=== PATIENT | female | born 1955 | race Caucasian/White ===

== ENCOUNTER 2022-10-09 16:08 | Emergency (ER) | payer MEDICARE, SELFPAY ==
[2022-10-09] VITALS (8 sets, daily range): BP systolic 117–146; BP diastolic 67–78; PULSE 63–98; RESP 20; TEMP 36.3; O2SAT 91–98; BMI 29.1
--- NOTE | 2022-10-09 16:31 | CRLHL7_ITS ---
For Patients: As a result of the Century Cures Act, medical imaging exams and procedure reports are released immediately into your electronic medical record. You may view this report before your referring provider. If you have questions, please contact your health care provider. INDICATION: Pain TECHNIQUE: Two view chest. FINDINGS: The lungs are clear. The heart, mediastinum and pulmonary vessels are of normal size. There is no evidence of pleural disease. IMPRESSION: Negative chest. Dictated by Diamond Austin MD @ 10/09/2022 5:41:45 PM (Electronically Signed)
--- NOTE | 2022-10-09 16:32 | ED.GENADULT ---
HPI - General Adult General Chief complaint: Chest Pain Stated complaint: Chest pain, across the whole chest Time Seen by Provider: 10/09/22 16:24 Source: patient Mode of arrival: ambulatory Limitations: no limitations History of Present Illness HPI narrative: 66-year-old female coming in today complaining of chest pain across the entire friend the chest. She feels a little bit of pain on the back of the shoulders as well. pain started last night and has continued on to today. Pain started when she was sitting on the couch watching TV. Nothing makes it better or worse. It is not associated with eating. She is not coughing. She feels a little dizzy. She denies diaphoresis. No headache, blurry vision. No fevers or chills. Patient was diagnosed with diabetes last week, was started on metformin had her 1st dose of insulin last night. She has been able to eat today without any difficulty. She does have a history of coronary artery disease status post stenting she believes about 8 years ago. She has a very strong family history of coronary artery disease with 2 sisters that had and her 39-year-old son who 7 months ago from an [place]. aside from the metformin and insulin patient is on chronic medication that she has been on for several years including atorvastatin. Related Data Home Medications Medication Instructions Recorded Confirmed atorvastatin 20 mg tablet mg 10/09/22 blood glucose control high and low 10/09/22 10/09/22 solution (Accu-Chek Guide L1-L2 Control Solution) blood sugar diagnostic (Accu-Chek 10/09/22 10/09/22 Guide test strips) blood-glucose meter (Accu-Chek 10/09/22 10/09/22 Guide Glucose Meter) bupropion HCl 150 mg 24 hr tablet, mg PO 10/09/22 extended release insulin glargine 100 unit/mL (3 unit subcut 10/09/22 mL) subcutaneous pen (Lantus Solostar U-100 Insulin) isosorbide mononitrate 60 mg mg PO 10/09/22 tablet,extended release 24 hr lancets (Accu-Chek Softclix 10/09/22 10/09/22 Lancets) lisinopril 20 mg tablet mg 10/09/22 metformin 500 mg tablet mg 10/09/22 metoprolol succinate 50 mg mg PO 10/09/22 tablet,extended release 24 hr Allergies Allergy/AdvReac Type Severity Reaction Status Date / Time No Known Drug Allergies Allergy Verified 10/09/22 16:35 Review of Systems Status of ROS: Reports: 10 or more systems reviewed and unremarkable except as noted in History and below [facility] Social History Smoking Status: Former smoker Do you use any of these nicotine containing products: None Second hand tobacco smoke exposure: No How often do you have a drink containing alcohol: never AUDIT-C Alcohol total score: 0 Non-prescribed substance use: denies use Exam Narrative: Exam Narrative: Well-nourished well-developed patient in no acute distress. Alert and oriented. Answers questions appropriately. Mood and affect are appropriate. Thoughts are goal oriented and rational. No tangential or magical thinking noted. Patient speaks in full sentences without needing to catch their breath. HEENT: Normocephalic atraumatic. Pupils are equally round reactive to light. Extraocular muscles are intact. Conjunctivae are moist without any icterus noted. Moist mucous membranes. Posterior pharynx is normal. Neck is soft without any lymphadenopathy or thyromegaly. No masses are appreciated. Cardiovascular: Heart is regular rate and rhythm S1 and S2 are present without any murmurs. I cannot reproduce her discomfort on palpation. Lungs: Clear to auscultation bilaterally no wheezes rhonchi or rales are appreciated. Patient takes deep breaths without any discomfort. Abdomen: Soft and nontender nondistended with normal bowel sounds. No guarding or rebound. No masses or organomegaly appreciated. Extremities: Bilateral lower extremities are without edema. Normal DP and PT pulses. Skin: Well perfused without any obvious rashes. Const: Vital Signs, click to edit/add: Vital Signs - 24 hr 10/09/22 16:27 Temperature 97.4 F L Pulse Rate [Right Pulse Oximeter] 70 Respiratory Rate 20 Blood Pressure [Le ft Upper Arm] 146/78 H Pulse Oximetry 98 Oxygen Delivery Me thod Room Air Course Course Hospital Course: EKG upon arrival, read by me, shows normal sinus rhythm with a first-degree AV block and left axis deviation. Also has an incomplete right bundle-branch block. Patient did have 364 mg of aspirin this morning so that was not repeated. Did give her morphine 2 mg IV which did really seem to make any difference. Her lab work was unremarkable. Her troponin was 0 as was her repeat troponin. Her lactate was slightly elevated. Chest x-ray, read by me, does not show any acute pathology. Discussed results with her, we discussed the possibility of musculoskeletal discomfort versus stress causing her symptoms. Patient tells me that she has been very stressed since the of her son and that she does not sleep at all at night. We discussed therapy, grief groups and following up with her primary care provider. Certainly returning to the ER for symptoms worsen. Patient was agreeable with everything we discussed had no other questions. Vital Signs Vital signs: Initial Vital Signs Temperature 97.4 F L 10/09/22 16:27 Temperature Source Temporal Artery Scan 10/09/22 16:27 Pulse Rate 70 10/09/22 16:27 Pulse Rhythm 10/09/22 16:27 Respiratory Rate 20 10/09/22 16:27 Blood Pressure 146/78 H 10/09/22 16:27 Blood Pressure Mean 100 10/09/22 16:27 Blood Pressure Position Supine 10/09/22 16:27 Pulse Oximetry 98 10/09/22 16:27 Oxygen Delivery Method 10/09/22 16:27 Vital Signs Temperature 97.4 F L 10/09/22 16:27 Pulse Rate 70 10/09/22 16:27 Respiratory Rate 20 10/09/22 16:27 Blood Pressure 146/78 H 10/09/22 16:27 Pulse Oximetry 98 10/09/22 16:27 Oxygen Delivery Method 10/09/22 16:27 Temperature 97.4 F L 10/09/22 16:27 Pulse Rate 70 10/09/22 16:27 Respiratory Rate 20 10/09/22 16:27 Blood Pressure 146/78 H 10/09/22 16:27 Pulse Oximetry 98 10/09/22 16:27 Oxygen Delivery Method 10/09/22 16:27 Medical Decision Making MDM Narrative Medical decision making narrative: Bilateral chest and shoulder pain, stress versus musculoskeletal discomfort. No evidence of cardiac pulmonary pathology today. The symptoms would be unusual for aortic dissection. I do not think that this represents GERD given the location of her discomfort. There is no evidence of PE or pneumothorax. Plan per above. Lab Data Lab results reviewed: Yes I reviewed the patient's lab results Labs: Lab Results 10/09/22 10/09/22 10/09/22 Range/Units 16:31 16:45 16:45 WBC 4.86 (4.50-11.00) K/uL RBC 5.08 (4.00-5.20) m/uL Hgb 14.0 (12.0-16.0) gm/dL Hct 42.4 (33.0-51.0) % MCV 84 (80-100) fL MCH 28 (26-34) pg MCHC 33 (32-36) gm/dL RDW Coeff of Deshaun 13.6 (11.5-15.5) % Plt Count 140 (140-440) K/uL Neut % (Auto) 49.5 (42.0-72.0) % Lymph % (Auto) 40.1 (20-44) % Florence % (Auto) 8.0 (0.0-11.0) % Eos % (Auto) 1.6 (0.0-7.0) % Baso % (Auto) 0.4 (0.0-3.0) % Neut # (Auto) 2.40 (1.7-7.0) K/uL Lymph # (Auto) 1.95 (0.90-2.90) K/uL Florence # (Auto) 0.40 (0.00-0.90) K/UL Eos # (Auto) 0.08 (0.00-0.50) K/uL Baso # (Auto) 0.02 (0.00-0.30) K/uL Abs Immat Gran (auto) 0.02 (0.00-0.30) K/uL Imm/Tot Granulo (auto) 0.4 % ESR 7 (2-20) mm/hr D-Dimer Quant (PE/DVT) (0.00-0.50) ug/ml Sodium (135-149) mmol/L Potassium (3.6-5.1) mmol/L Chloride (96-114) mmol/L Carbon Dioxide (20-32) mmol/L BUN (7-30) mg/dL Creatinine (0.5-1.5) mg/dL Estimated Creat Clear Estimated GFR ml/min Glucose (60-115) mg/dL Lactate (0.5-1.9) mmol/L Calcium (8.4-10.6) mg/dL Total Bilirubin (0.1-1.5) mg/dL Direct Bilirubin (0.0-0.5) mg/dL AST (12-35) U/L ALT (4-35) U/L Alkaline Phosphatase (40-150) U/L C-Reactive Protein (0.5-1.0) mg/dL Total Protein (6.0-8.3) g/dL Albumin (3.3-5.0) g/dL Lipase (23-300) U/L POC Troponin I 0.00 L (0.01-0.04) ng/ml 10/09/22 10/09/22 10/09/22 Range/Units 16:45 16:45 16:45 WBC (4.50-11.00) K/uL RBC (4.00-5.20) m/uL Hgb (12.0-16.0) gm/dL Hct (33.0-51.0) % MCV (80-100) fL MCH (26-34) pg MCHC (32-36) gm/dL RDW Coeff of Deshaun (11.5-15.5) % Plt Count (140-440) K/uL Neut % (Auto) (42.0-72.0) % Lymph % (Auto) (20-44) % Florence % (Auto) (0.0-11.0) % Eos % (Auto) (0.0-7.0) % Baso % (Auto) (0.0-3.0) % Neut # (Auto) (1.7-7.0) K/uL Lymph # (Auto) (0.90-2.90) K/uL Florence # (Auto) (0.00-0.90) K/UL Eos # (Auto) (0.00-0.50) K/uL Baso # (Auto) (0.00-0.30) K/uL Abs Immat Gran (auto) (0.00-0.30) K/uL Imm/Tot Granulo (auto) % ESR (2-20) mm/hr D-Dimer Quant (PE/DVT) 0.45 (0.00-0.50) ug/ml Sodium 137 (135-149) mmol/L Potassium 4.5 (3.6-5.1) mmol/L Chloride 106 (96-114) mmol/L Carbon Dioxide 21 (20-32) mmol/L BUN 24 (7-30) mg/dL Creatinine 1.3 (0.5-1.5) mg/dL Estimated Creat Clear 38.77 Estimated GFR 45 ml/min Glucose 259 H (60-115) mg/dL Lactate 2.5 H (0.5-1.9) mmol/L Calcium 9.8 (8.4-10.6) mg/dL Total Bilirubin 0.5 (0.1-1.5) mg/dL Direct Bilirubin 0.2 (0.0-0.5) mg/dL AST 25 (12-35) U/L ALT 30 (4-35) U/L Alkaline Phosphatase 63 (40-150) U/L C-Reactive Protein < 0.5 L (0.5-1.0) mg/dL Total Protein 6.8 (6.0-8.3) g/dL Albumin 4.4 (3.3-5.0) g/dL Lipase 168 (23-300) U/L POC Troponin I (0.01-0.04) ng/ml 10/09/22 Range/Units 18:17 WBC (4.50-11.00) K/uL RBC (4.00-5.20) m/uL Hgb (12.0-16.0) gm/dL Hct (33.0-51.0) % MCV (80-100) fL MCH (26-34) pg MCHC (32-36) gm/dL RDW Coeff of Deshaun (11.5-15.5) % Plt Count (140-440) K/uL Neut % (Auto) (42.0-72.0) % Lymph % (Auto) (20-44) % [place] % (Auto) (0.0-11.0) % Eos % (Auto) (0.0-7.0) % Baso % (Auto) (0.0-3.0) % Neut # (Auto) (1.7-7.0) K/uL Lymph # (Auto) (0.90-2.90) K/uL [place] # (Auto) (0.00-0.90) K/UL Eos # (Auto) (0.00-0.50) K/uL Baso # (Auto) (0.00-0.30) K/uL Abs Immat Gran (auto) (0.00-0.30) K/uL Imm/Tot Granulo (auto) % ESR (2-20) mm/hr D-Dimer Quant (PE/DVT) (0.00-0.50) ug/ml Sodium (135-149) mmol/L Potassium (3.6-5.1) mmol/L Chloride (96-114) mmol/L Carbon Dioxide (20-32) mmol/L BUN (7-30) mg/dL Creatinine (0.5-1.5) mg/dL Estimated Creat Clear Estimated GFR ml/min Glucose (60-115) mg/dL Lactate (0.5-1.9) mmol/L Calcium (8.4-10.6) mg/dL Total Bilirubin (0.1-1.5) mg/dL Direct Bilirubin (0.0-0.5) mg/dL AST (12-35) U/L ALT (4-35) U/L Alkaline Phosphatase (40-150) U/L C-Reactive Protein (0.5-1.0) mg/dL Total Protein (6.0-8.3) g/dL Albumin (3.3-5.0) g/dL Lipase (23-300) U/L POC Troponin I 0.00 L (0.01-0.04) ng/ml Imaging Data Chest x-ray: Attestation: I have reviewed the pertinent imaging results. Radiologist's impression: Two view chest. FINDINGS: The lungs are clear. The heart, mediastinum and pulmonary vessels are of normal size. There is no evidence of pleural disease. IMPRESSION: Negative chest. ECG Data Attestation: I personally reviewed and interpreted this ECG as follows: (Normal sinus rhythm, incomplete right bundle-branch block, left axis deviation, pulse 70) Discharge Plan Discharge Clinical Impression: Chest pain Patient Disposition: Home, Self-Care Condition: Stable Additional Instructions: Try using heat to sore areas of the chest and neck, do not apply heat directly to skin. Recommend you follow-up with your primary care provider to discuss grief counseling as this may be beneficial for you. Prescriptions: No Action metformin 500 mg tablet Label Comments: TAKE TWO TABLETS BY MOUTH TWICE A DAY WITH MEALS , START ONE TABLET TWO TIMES A DAY FOR 1 WEEK atorvastatin 20 mg tablet Label Comments: TAKE ONE TABLET BY MOUTH EVERY DAY (DME) blood-glucose meter [Accu-Chek Guide Glucose Meter] [facility] [place] MISCELLANEOUS Label Comments: USE TO TEST THREE TIMES A DAY metoprolol succinate 50 mg tablet extended release 24 hr PO Label Comments: TAKE ONE TABLET BY MOUTH EVERY DAY . lisinopril 20 mg tablet Label Comments: TAKE ONE TABLET BY MOUTH EVERY DAY . (DME) Accu-Chek Guide test strips Strip MISCELLANEOUS Label Comments: USE TO TEST THREE TIMES A DAY isosorbide mononitrate 60 mg tablet extended release 24 hr PO Label Comments: TAKE ONE TABLET BY MOUTH EVERY DAY (DME) lancets [Accu-Chek Softclix Lancets] [facility] [place] MISCELLANEOUS Label Comments: USE 1 EACH TO TEST THREE TIMES A DAY bupropion HCl 150 mg tablet extended release 24 hr PO Label Comments: TAKE 3 TABLETS BY MOUTH DAILY (DME) Accu-Chek Guide L1-L2 Ctrl Yadira Solution MISCELLANEOUS Label Comments: USE TO TEST NEEDED insulin glargine [Lantus Solostar U-100 Insulin] 100 unit/mL (3 mL) insulin pen SUBCUT Label Comments: INJECT 19 UNITS SUBCUTANEOUSLY EVERY EVENING Stand Alone Forms: My[employer] Info Instructions
[2022-10-09] MEDS: MORPHINE 2 MG/ML inj IVP (16:48)
[2022-10-09 17:00] LABS: Lactate* 2.5 mmol/L (0.5-1.9)
[2022-10-09 17:03] LABS: Basophils Absolute Auto 0.02 K/uL (0.00-0.30); Basophils Percent Auto 0.4 % (0.0-3.0); Eosinophils Absolute Auto 0.08 K/uL (0.00-0.50); Eosinophils Percent Auto 1.6 % (0.0-7.0); Hematocrit 42.4 % (33.0-51.0); Immature Granulocytes Abs Auto 0.02 K/uL (0.00-0.30); Immature Granulocytes Pct Auto 0.4 %; Lymphocytes Absolute Auto 1.95 K/uL (0.90-2.90); Lymphocytes Percent Auto 40.1 % (20-44); Mean Corpuscular HGB Conc 33 gm/dL (32-36); Mean Corpuscular Hemoglobin 28 pg (26-34); Mean Corpuscular Volume 84 fL (80-100); Neutrophils Percent Auto 49.5 % (42.0-72.0); Platelet Count* 140 K/uL (140-440); RDW Coefficient of Variation % 13.6 % (11.5-15.5); Red Blood Count 5.08 m/uL (4.00-5.20); White Blood Count* 4.86 K/uL (4.50-11.00)
[2022-10-09 17:14] LABS: Slide Review Reflex No
[2022-10-09 17:17] LABS: Albumin* 4.4 g/dL (3.3-5.0); Chloride* 106 mmol/L (96-114); Sodium* 137 mmol/L (135-149)
[2022-10-09 17:18] LABS: Potassium* 4.5 mmol/L (3.6-5.1)
[2022-10-09 17:21] LABS: Alanine Aminotransferase* 30 U/L (4-35); Alkaline Phosphatase* 63 U/L (40-150); Aspartate Amino Transferase* 25 U/L (12-35); Bilirubin Direct* 0.2 mg/dL (0.0-0.5); Bilirubin Total* 0.5 mg/dL (0.1-1.5); Blood Urea Nitrogen* 24 mg/dL (7-30); Calcium* 9.8 mg/dL (8.4-10.6); Carbon Dioxide* 21 mmol/L (20-32); Creatinine* 1.3 mg/dL (0.5-1.5); Est. Creatinine Clearance* 38.77; Estimated Glomerular Filt Rate 45 ml/min; Glucose* 259 mg/dL (60-115); Lipase* 168 U/L (23-300); Total Protein* 6.8 g/dL (6.0-8.3)
[2022-10-09 17:22] LABS: D Dimer Quantitative* 0.45 ug/ml (0.00-0.50)
[2022-10-09 17:25] LABS: C Reactive Protein* < 0.5 mg/dL (0.5-1.0)
[2022-10-09 17:51] LABS: Erythrocyte SedimentationRate* 7 mm/hr (2-20)
== END 2022-10-09 19:00 | disposition home or self-care (01) ==
PROVIDERS: Emergency Provider Family Medicine
DX: R07.9 Chest pain, unspecified (principal)
CPT/HCPCS: 36415; 71046; 80048; 80076; 83605; 83690; 84484; 85025; 85379; 85651; 86140; 93005; 94761; 96374; 99284; 99285; J2270

== ENCOUNTER 2023-07-16 15:09 | Emergency (ER) | payer MEDICARE, SELFPAY ==
[2023-07-16 15:16] VITALS: BP 149/70; PULSE 78; RESP 18; TEMP 36.4; O2SAT 98; BMI 31.3
--- NOTE | 2023-07-16 15:52 | CRLHL7_ITS ---
For Patients: As a result of the Century Cures Act, medical imaging exams and procedure reports are released immediately into your electronic medical record. You may view this report before your referring provider. If you have questions, please contact your health care provider. INDICATION: Diffuse abdominal pain worse in the lower quadrant. TECHNIQUE: CT abdomen and pelvis acquired with 100 cc Isovue 370 IV contrast. COMPARISON: None. FINDINGS: Lower chest: Scattered atelectasis. Tiny hiatal hernia. Liver: Unremarkable. Normal in size and attenuation. No suspicious masses. Gallbladder and bile ducts: Cholecystectomy. Pancreas: Unremarkable. No mass or inflammation. Spleen: Unremarkable. Normal in size. No masses. Adrenal glands: Unremarkable. No nodules. Kidneys: Tiny hypodensities in both kidneys, too small to characterize. No suspicious masses, stones, or hydronephrosis. GI tract: Moderate colonic stool burden. Colonic diverticula. Normal in caliber. No sign of mass or inflammation. Normal appendix. Vasculature: Moderate aortoiliac arterial calcifications abdominal aorta is normal in caliber. Mesenteric arteries are patent. Lymph nodes: No lymphadenopathy. Peritoneum/Abdominal Wall: Unremarkable. No sign of mass or infiltration. No free air or significant free fluid. Pelvis: Unremarkable. Bones: Bilateral hip arthroplasty causing streak artifact. IMPRESSION: No acute intra-abdominal/pelvic abnormality. Moderate colonic stool burden. Colonic diverticulosis without diverticulitis. Please note that all CT scans at this facility use dose modulation, iterative reconstruction, and/or weight-based dosing when appropriate to reduce radiation dose to as low as reasonably achievable. Dictated by Chilo Babin MD @ 07/16/2023 6:59:32 PM (Electronically Signed)
[2023-07-16 16:27] LABS: Appearance Urine Clear (Clear); Bilirubin Urine Negative (Negative); Blood Urine Negative (Negative); Color Urine Yellow (Yellow); Glucose Urine Negative (Negative); Ketones Urine Negative (Negative); Leukocyte Esterase Urine Negative (Negative); Nitrite Urine Negative (Negative); Protein Urine Negative (Negative); Specific Gravity Urine >= 1.030 (1.000-1.030); pH Urine 5.5 (5.0-8.5)
[2023-07-16 16:39] LABS: Albumin* 4.2 g/dL (3.3-5.0); Chloride* 103 mmol/L (96-114); Sodium* 136 mmol/L (135-149)
[2023-07-16 16:40] LABS: Basophils Absolute Auto 0.02 K/uL (0.00-0.30); Basophils Percent Auto 0.2 % (0.0-3.0); Eosinophils Absolute Auto 0.06 K/uL (0.00-0.50); Eosinophils Percent Auto 0.7 % (0.0-7.0); Hematocrit 39.4 % (33.0-51.0); Hemoglobin* 13.1 gm/dL (12.0-16.0); Immature Granulocytes Abs Auto 0.08 K/uL (0.00-0.30); Lymphocytes Percent Auto 19.3 % (20-44); Mean Corpuscular HGB Conc 33 gm/dL (32-36); Mean Corpuscular Hemoglobin 28 pg (26-34); Mean Corpuscular Volume 83 fL (80-100); Neutrophils Absolute Auto 5.69 K/uL (1.7-7.0); Neutrophils Percent Auto 69.8 % (42.0-72.0); Platelet Count* 161 K/uL (140-440); RDW Coefficient of Variation % 13.7 % (11.5-15.5); Red Blood Count 4.77 m/uL (4.00-5.20); White Blood Count* 8.15 K/uL (4.50-11.00)
[2023-07-16 16:41] LABS: Anion Gap 10 mEq/L (7-15); Aspartate Amino Transferase* 35 U/L (12-35); Bilirubin Total* 0.8 mg/dL (0.1-1.5); Carbon Dioxide* 23 mmol/L (20-32); Creatinine* 0.9 mg/dL (0.5-1.5); Estimated Glomerular Filt Rate 69 ml/min; Slide Review Reflex No
[2023-07-16 16:42] LABS: Alanine Aminotransferase* 22 U/L (4-35); Alkaline Phosphatase* 82 U/L (40-150); Blood Urea Nitrogen* 19 mg/dL (7-30); Glucose* 170 mg/dL (60-115); Lipase* 85 U/L (23-300); Total Protein* 7.3 g/dL (6.0-8.3)
--- NOTE | 2023-07-16 16:45 | ED_ITS ---
HPI - General Adult General Date Seen: 07/16/23 Chief complaint: Abdominal Pain Stated complaint: Abdominal/back pain Time Seen by Provider: 07/16/23 15:31 Source: patient Mode of arrival: ambulatory Limitations: no limitations History of Present Illness HPI narrative: Patient is a 67-year-old female presenting to emergency department for lower abdominal pain. She states the same pain has been going on for past 2 days but worse today. She tried ibuprofen and oxycodone without improvement in her symptoms. States the pain feels to be in a puddle pelvic region and lower abdominal area. Does note she has a history of ovarian cyst. Denies fever chills, headache, chest pain, shortness breath, vision changes, weakness, numbness. Does states she has been having nausea. Admits to have a fever overnight which she says was 104 T-max. Previous abdominal surgeries include cholecystectomy. She did have a bowel movement yesterday which she says was normal. She has been eating and drinking without issue but states she does not have much of an appetite at baseline. This states she feels bloated at this time. Related Data Home Medications Medication Instructions Recorded Confirmed atorvastatin 20 mg tablet mg 10/09/22 blood glucose control high and low 10/09/22 10/09/22 solution (Accu-Chek Guide L1-L2 Control Solution) blood sugar diagnostic (Accu-Chek 10/09/22 10/09/22 Guide test strips) blood-glucose meter (Accu-Chek 10/09/22 10/09/22 Guide Glucose Meter) bupropion HCl 150 mg 24 hr tablet, mg PO 10/09/22 extended release insulin glargine 100 unit/mL (3 unit subcut 10/09/22 mL) subcutaneous pen (Lantus Solostar U-100 Insulin) isosorbide mononitrate 60 mg mg PO 10/09/22 tablet,extended release 24 hr lancets (Accu-Chek Softclix 10/09/22 10/09/22 Lancets) lisinopril 20 mg tablet mg 10/09/22 metformin 500 mg tablet mg 10/09/22 metoprolol succinate 50 mg mg PO 10/09/22 tablet,extended release 24 hr Allergies Allergy/AdvReac Type Severity Reaction Status Date / Time No Known Drug Allergies Allergy Verified 07/16/23 15:19 Review of Systems Status of ROS: Reports: 10 or more systems reviewed and unremarkable except as noted in History and below [facility] Social History Smoking Status: Former smoker Do you use any of these nicotine containing products: None Second hand tobacco smoke exposure: No How often do you have a drink containing alcohol: never AUDIT-C Alcohol total score: 0 Non-prescribed substance use: denies use Exam Narrative: Exam Narrative: Const: Well-nourished, Well-developed, in mild distress Eyes: PERRL, no conjunctival injection, and symmetrical lids ENMT: Atraumatic external nose and ears. Moist mucous membranes. Neck: Symmetric, trachea midline, No thyromegaly. CVS: RRR, No murmurs or gallops. Peripheral pulses 2+ and equal in all extremities RESP: Unlabored respiratory effort. Clear to auscultation bilaterally. GI: Mild diffuse abdominal tenderness worse in the bilateral lower quadrants. Nondistended, No rebound or guarding. MSK:Extremities w/o deformity, Normal Active ROM Skin: Warm, Dry. No rashes or lesions. Neuro: Normal Muscle tone, No focal neurological deficits. Psych: Awake, Alert, & Oriented x3. Appropriate mood and affect. Const: Vital Signs, click to edit/add: Vital Signs - 24 hr 07/16/23 15:16 Temperature 97.6 F Pulse Rate [Pulse Oximeter] 78 Respiratory Rate 18 Blood Pressure [Ri ght Upper Arm] 149/70 H Pulse Oximetry 98 Oxygen Delivery Me thod Room Air Course Vital Signs Vital signs: Initial Vital Signs Temperature 97.6 F 07/16/23 15:16 Temperature Source Temporal Artery Scan 07/16/23 15:16 Pulse Rate 78 07/16/23 15:16 Respiratory Rate 18 07/16/23 15:16 Blood Pressure 149/70 H 07/16/23 15:16 Blood Pressure Mean 96 07/16/23 15:16 Pulse Oximetry 98 07/16/23 15:16 Oxygen Delivery Method Room Air 07/16/23 15:16 Vital Signs Temperature 97.6 F 07/16/23 15:16 Pulse Rate 78 07/16/23 15:16 Respiratory Rate 18 07/16/23 15:16 Blood Pressure 149/70 H 07/16/23 15:16 Pulse Oximetry 98 07/16/23 15:16 Oxygen Delivery Method Room Air 07/16/23 15:16 Temperature 97.6 F 07/16/23 15:16 Pulse Rate 78 07/16/23 15:16 Respiratory Rate 18 07/16/23 15:16 Blood Pressure 149/70 H 07/16/23 15:16 Pulse Oximetry 98 07/16/23 15:16 Oxygen Delivery Method Room Air 07/16/23 15:16 Medical Decision Making MDM Narrative Medical decision making narrative: Patient is a 7 year female presented emergency department for abdominal pain. Symptoms going on for the past 2 days. Has a previous cholecystectomy. It is in bilateral lower quadrants. Does have diffuse abdominal tenderness low. Had a normal bowel movement yesterday. Does not feel constipated. SBO is only differential considering previous surgeries. Also considering ovarian cyst, appendicitis, diverticulitis, pancreatitis. Unlikely to be a bilateral ovarian torsion at this time considered cervical for few days since she has not appear to be in too much distress. CBC, CMP, lipase, urinalysis all ordered. I also ordered a CT scan with IV contrast. Toradol was given for pain and Zofran for nausea. Patient's lab work returns showing no concerning abnormalities. She continued to have pain so morphine was given. This improved her symptoms. Labs are stable throughout her time emergency department. CT returns showing no concerning abnormalities. Is unclear what is causing her pain at this time but she is otherwise doing well and I believe she can be discharged home. She is agreeable with this plan. Lab Data Labs: Lab Results 07/16/23 07/16/23 Range/Units 15:52 16:15 WBC 8.15 (4.50-11.00) K/uL RBC 4.77 (4.00-5.20) m/uL Hgb 13.1 (12.0-16.0) gm/dL Hct 39.4 (33.0-51.0) % MCV 83 (80-100) fL MCH 28 (26-34) pg MCHC 33 (32-36) gm/dL RDW Coeff of Deshaun 13.7 (11.5-15.5) % Plt Count 161 (140-440) K/uL Neut % (Auto) 69.8 (42.0-72.0) % Lymph % (Auto) 19.3 L (20-44) % Rains % (Auto) 9.0 (0.0-11.0) % Eos % (Auto) 0.7 (0.0-7.0) % Baso % (Auto) 0.2 (0.0-3.0) % Neut # (Auto) 5.69 (1.7-7.0) K/uL Lymph # (Auto) 1.60 (0.90-2.90) K/uL Rains # (Auto) 0.70 (0.00-0.90) K/UL Eos # (Auto) 0.06 (0.00-0.50) K/uL Baso # (Auto) 0.02 (0.00-0.30) K/uL Abs Immat Gran (auto) 0.08 (0.00-0.30) K/uL Imm/Tot Granulo (auto) 1.0 % Sodium 136 (135-149) mmol/L Potassium 4.0 (3.6-5.1) mmol/L Chloride 103 (96-114) mmol/L Carbon Dioxide 23 (20-32) mmol/L Anion Gap 10 (7-15) mEq/L BUN 19 (7-30) mg/dL Creatinine 0.9 (0.5-1.5) mg/dL Estimated Creat Clear 49.70 Estimated GFR 69 ml/min Glucose 170 H (60-115) mg/dL Calcium 10.0 (8.4-10.6) mg/dL Total Bilirubin 0.8 (0.1-1.5) mg/dL AST 35 (12-35) U/L ALT 22 (4-35) U/L Alkaline Phosphatase 82 (40-150) U/L Total Protein 7.3 (6.0-8.3) g/dL Albumin 4.2 (3.3-5.0) g/dL Lipase 85 (23-300) U/L Urine Color Yellow (Yellow) Urine Appearance Clear (Clear) Urine pH 5.5 (5.0-8.5) Ur Specific [place] >= 1.030 (1.000-1.030) Urine Protein Negative (Negative) Urine Glucose (UA) Negative (Negative) Urine Ketones Negative (Negative) Urine Blood Negative (Negative) Urine Nitrite Negative (Negative) Urine Bilirubin Negative (Negative) Urine Urobilinogen 1.0 (0.2-1.0) Ur Leukocyte Esterase Negative (Negative) Urine RBC 2-5 A (0-2) Urine WBC 2-5 (0-5) Ur Squamous Epith Cells Few (None-Few) Urine Bacteria Few A (None) Imaging Data CT scan abdomen and pelvis: Radiologist's impression: INDICATION: Diffuse abdominal pain worse in the lower quadrant. TECHNIQUE: CT abdomen and pelvis acquired with 100 cc Isovue 370 IV contrast. COMPARISON: None. FINDINGS: Lower chest: Scattered atelectasis. Tiny hiatal hernia. Liver: Unremarkable. Normal in size and attenuation. No suspicious masses. Gallbladder and bile ducts: Cholecystectomy. Pancreas: Unremarkable. No mass or inflammation. Spleen: Unremarkable. Normal in size. No masses. Adrenal glands: Unremarkable. No nodules. Kidneys: Tiny hypodensities in both kidneys, too small to characterize. No suspicious masses, stones, or hydronephrosis. GI tract: Moderate colonic stool burden. Colonic diverticula. Normal in caliber. No sign of mass or inflammation. Normal appendix. Vasculature: Moderate aortoiliac arterial calcifications abdominal aorta is normal in caliber. Mesenteric arteries are patent. Lymph nodes: No lymphadenopathy. Peritoneum/Abdominal Wall: Unremarkable. No sign of mass or infiltration. No free air or significant free fluid. Pelvis: Unremarkable. Bones: Bilateral hip arthroplasty causing streak artifact. IMPRESSION: No acute intra-abdominal/pelvic abnormality. Moderate colonic stool burden. Colonic diverticulosis without diverticulitis. Please note that all CT scans at this facility use dose modulation, iterative reconstruction, and/or weight-based dosing when appropriate to reduce radiation dose to as low as reasonably achievable. Dictated by Chilo Babin MD @ 07/16/2023 6:59:32 PM Discharge Plan Discharge Clinical Impression: Abdominal pain Qualifiers: Abdominal location: lower abdomen, unspecified Qualified Code(s): R10.30 - Lower abdominal pain, unspecified Patient Disposition: Home, Self-Care Condition: Stable Instructions: Abdominal Pain (ED) Additional Instructions: Are lab work and imaging showed no concerning abnormalities. Follow-up with the primary care provider if symptoms are not improving. Return for new worsening symptoms. Prescriptions: No Action metformin 500 mg tablet Patient Comments: TAKE TWO TABLETS BY MOUTH TWICE A DAY WITH MEALS , START ONE TABLET TWO TIMES A DAY FOR 1 WEEK atorvastatin 20 mg tablet Patient Comments: TAKE ONE TABLET BY MOUTH EVERY DAY (DME) blood-glucose meter [Accu-Chek Guide Glucose Meter] [facility] MISCELLANEOUS Patient Comments: USE TO TEST THREE TIMES A DAY metoprolol succinate 50 mg tablet extended release 24 hr PO Patient Comments: TAKE ONE TABLET BY MOUTH EVERY DAY . lisinopril 20 mg tablet Patient Comments: TAKE ONE TABLET BY MOUTH EVERY DAY . (DME) Accu-Chek Guide test strips Strip MISCELLANEOUS Patient Comments: USE TO TEST THREE TIMES A DAY isosorbide mononitrate 60 mg tablet extended release 24 hr PO Patient Comments: TAKE ONE TABLET BY MOUTH EVERY DAY (DME) lancets [Accu-Chek Softclix Lancets] [facility] MISCELLANEOUS Patient Comments: USE 1 EACH TO TEST THREE TIMES A DAY bupropion HCl 150 mg tablet extended release 24 hr PO Patient Comments: TAKE 3 TABLETS BY MOUTH DAILY (DME) Accu-Chek Guide L1-L2 Ctrl Yadira Solution MISCELLANEOUS Patient Comments: USE TO TEST NEEDED insulin glargine [Lantus Solostar U-100 Insulin] 100 unit/mL (3 mL) insulin pen SUBCUT Patient Comments: INJECT 19 UNITS SUBCUTANEOUSLY EVERY EVENING Follow Up/Referrals: Provider,Not a Local [Primary Care Provider] - Stand Alone Forms: [facility] Info Instructions
[2023-07-16 16:47] LABS: Bacteria Urine Few; Squamous Epithelial Cell Urine Few (None-Few)
[2023-07-16] MEDS: KETOROLAC 15 MG/ML inj IVP (17:53)
[2023-07-16] MEDS: LACTATED RINGERS 1000 ML 1,000 ML IV (17:53)
[2023-07-16] MEDS: ONDANSETRON 2 MG/ML inj 4 MG IVP (17:54)
[2023-07-16] MEDS: MORPHINE 4 MG/ML INJ IVP (17:54)
== END 2023-07-16 19:35 | disposition home or self-care (01) ==
PROVIDERS: Emergency Provider Student in an Organized Health Care Education/Training Program
DX: R10.30 Lower abdominal pain, unspecified (principal)
CPT/HCPCS: 36415; 74177; 80053; 81001; 83690; 85025; 87086; 96374; 96375; 99283; 99284; J1885; J2270; J2405; J7120; Q9967

== ENCOUNTER 2024-01-09 12:41 | Emergency (ER) | payer MEDICARE, SELFPAY ==
[2024-01-09] VITALS (7 sets, daily range): BP systolic 136–156; BP diastolic 68–77; PULSE 59–62; RESP 16; TEMP 36.6; O2SAT 96–99; BMI 33.2
--- NOTE | 2024-01-09 13:18 | ED.GENADULT ---
HPI - General Adult General Date Seen: 01/09/24 Chief complaint: Chest Pain Stated complaint: Chest pain, short of breath,swelling in legs Time Seen by Provider: 01/09/24 13:18 History of Present Illness HPI narrative: 68 yo F with h/o cAD and MT and stents 12 years ago, COPD, high cholesterol, diabetes, hypertension, who Presents to the ER today with concern for chest pain and chest tightness. She has had upper chest pain since yesterday in her chest has been feeling tight. She says her chest feels kind of like when she needs to use her albuterol, but She has been trying her albuterol nebulizer but it is not helpful. She also says her chest feels like when she had her stent several years ago. She also tried nitro with no response but she thinks her nitro might be . She has also noted bilateral lower extremity swelling ongoing for the past 4-5 days. The edema is bilateral but worse in her left leg and also some to the hives affects her hands She does not have any history of DVT or PE. She takes baby aspirin but no other anticoagulants. No recent travel. No other recent illnesses. No cough. No fever. No abdominal pain. No vomiting. Bowel movements normal. Related Data Home Medications Medication Instructions Recorded Confirmed atorvastatin 20 mg tablet mg 10/09/22 blood glucose control high and low 10/09/22 10/09/22 solution (Accu-Chek Guide L1-L2 Control Solution) blood sugar diagnostic (Accu-Chek 10/09/22 10/09/22 Guide test strips) blood-glucose meter (Accu-Chek 10/09/22 10/09/22 Guide Glucose Meter) bupropion HCl 150 mg 24 hr tablet, mg PO 10/09/22 extended release insulin glargine 100 unit/mL (3 unit subcut 10/09/22 mL) subcutaneous pen (Lantus Solostar U-100 Insulin) isosorbide mononitrate 60 mg mg PO 10/09/22 tablet,extended release 24 hr lancets (Accu-Chek Softclix 10/09/22 10/09/22 Lancets) lisinopril 20 mg tablet mg 10/09/22 metoprolol succinate 50 mg mg PO 10/09/22 tablet,extended release 24 hr omeprazole 20 mg capsule,delayed 20 mg PO DAILY 01/09/24 01/09/24 release pioglitazone 45 mg tablet 45 mg PO DAILY 01/09/24 01/09/24 Previous Rx's Medication Instructions Recorded prednisone 20 mg tablet 40 mg (2 x 20 mg) PO DAILY #10 tabs 01/09/24 Allergies Allergy/AdvReac Type Severity Reaction Status Date / Time No Known Drug Allergies Allergy Verified 01/09/24 13:12 [facility] Social History Smoking Status: Former smoker Do you use any of these nicotine containing products: None Second hand tobacco smoke exposure: No How often do you have a drink containing alcohol: never AUDIT-C Alcohol total score: 0 Non-prescribed substance use: denies use service: No Exam Narrative: Exam Narrative: Constitutional: Appears well-developed and well-nourished. Alert. Conversant. Non toxic. HENT: Head: Atraumatic. Nose: Nose normal. Mouth/Throat: Oral mucosa is clear and moist. no trismus. Pharynx normal. Tonsils symmetric. No tonsillar enlargement, erythema, or exudate. Eyes: Conjunctivae normal. EOM normal. Pupils equal, round, and reactive to light. No scleral icterus. Neck: Normal range of motion. Neck supple. No tracheal deviation present. No JVD Cardiovascular: Normal rate, regular rhythm. No gallop. No friction rub. No murmur heard. Symmetric radial artery pulses Pulmonary/Chest: Effort normal. No stridor. No respiratory distress. No wheezes. No rales. No rhonchi . No tenderness. Abdominal: Soft. Bowel sounds normal. No distension. No mass. No tenderness. No rebound. No guarding. Musculoskeletal: RUE: Normal range of motion. No tenderness. No deformity LUE: Normal range of motion. No tenderness. No deformity RLE: Normal range of motion. 1+ edema. No tenderness. No deformity LLE: Normal range of motion. 1+ edema. No tenderness. No deformity Neurological: Alert and oriented to person, place, and time. Normal strength. CN II-VII intact. No sensory deficit. GCS eye subscore is 4. GCS verbal subscore is 5. GCS motor subscore is 6. Normal coordination Skin: Skin is warm and dry. No rash noted. No pallor. Normal capillary refill. Psychiatric: Normal mood. Normal affect. Const: Vital Signs, click to edit/add: Vital Signs - 24 hr 01/09/24 13:05 01/09/24 13:28 01/09/24 13:30 Temperature 98 F Pulse Rate 62 59 L Pulse Rate [Pulse Oximeter] 60 Respiratory Rate 16 Blood Pressure Blood Pressure [Ri ght Upper Arm] 136/71 Pulse Oximetry 98 97 99 Oxygen Delivery Me thod Room Air 01/09/24 13:31 01/09/24 13:45 01/09/24 14:00 Temperature Pulse Rate 59 L 62 60 Pulse Rate [Pulse Oximeter] Respiratory Rate Blood Pressure 156/68 H Blood Pressure [Ri ght Upper Arm] Pulse Oximetry 97 96 97 Oxygen Delivery Me thod 01/09/24 14:02 Temperature Pulse Rate 60 Pulse Rate [Pulse Oximeter] Respiratory Rate Blood Pressure 156/77 H Blood Pressure [Ri ght Upper Arm] Pulse Oximetry 96 Oxygen Delivery Me thod Course Vital Signs Vital signs: Initial Vital Signs Temperature 98 F 01/09/24 13:05 Temperature Source Temporal Artery Scan 01/09/24 13:05 Pulse Rate 60 01/09/24 13:05 Pulse Rhythm Regular 01/09/24 13:05 Pulse Strength 3+ Normal 01/09/24 13:05 Respiratory Rate 16 01/09/24 13:05 Blood Pressure 136/71 01/09/24 13:05 Blood Pressure Mean 92 01/09/24 13:05 Blood Pressure Position Sitting 01/09/24 13:05 Pulse Oximetry 98 01/09/24 13:05 Oxygen Delivery Method Room Air 01/09/24 13:05 Vital Signs Temperature 98 F 01/09/24 13:05 Pulse Rate 60 01/09/24 13:05 Respiratory Rate 16 01/09/24 13:05 Blood Pressure 136/71 01/09/24 13:05 Pulse Oximetry 98 01/09/24 13:05 Oxygen Delivery Method Room Air 01/09/24 13:05 Temperature 98 F 01/09/24 13:05 Pulse Rate 60 01/09/24 14:02 Respiratory Rate 16 01/09/24 13:05 Blood Pressure 156/77 H 01/09/24 14:02 Pulse Oximetry 96 01/09/24 14:02 Oxygen Delivery Method Room Air 01/09/24 13:05 Medications Administered Medications: Generic Name Dose Route Start Last Admin Trade Name Jhonatan PRN Reason Stop Dose Admin Nitroglycerin 0.4 mg 01/09/24 13:33 01/09/24 13:38 Nitroglycerin 0.4 Mg Tab.Subl SUBLINGUAL 0.4 mg Q5M PRN Administration Discontinued Medications Generic Name Dose Route Start Last Admin Trade Name Jhonatan PRN Reason Stop Dose Admin Aspirin 162 mg 01/09/24 13:33 01/09/24 13:39 Aspirin 81 Mg Tab.Chew PO 01/09/24 13:34 162 mg ONCE ONE Administration Medical Decision Making MDM Narrative Medical decision making narrative: This patient presents to the ER today for evaluation of chest pain this been ongoing since yesterday associated with mild bilateral lower extremity swelling for the past few days.. Differential was broad. No evidence of palpitations, syncope or other cardiac dysrhythmia. We considered possible ACS, however workup with EKG and troponin is negative. Given time since onset of symptoms, I do not think the patient needs to be admitted for further sets of enzymes. Continuous pain for over 24 hours is not consistent with angina. At this point I do not think she needs to be admitted for serial enzymes or provocative testing. EKG shows no evidence for pericarditis. Clinical presentation not suggestive of myocarditis. We considered PE for this patient. Abnormal D-dimer prompted chest CT PA which is fortunately negative. CT PA does show evidence for possible peribronchial inflammation. Chest CT shows no evidence for pneumonia, pneumothorax, pulmonary edema, pleural effusion, rib fracture. Mediastinum is normal on the CT. This is not an aortic protocol CT but since The patient has no ripping or tearing pain through to the back and has symmetric pulses on exam, no other acute neuro findings so I doubt aortic dissection. Risk of radiation and repeat contrast exposure would outweigh the benefit of dedicated CT angiogram. Considering peribronchial inflammation noted on CT the patient does have a history of COPD and does have inhalers at home. She is really not having any wheezing on serial lung exams here in the ER, however. Will try her on a short course of prednisone to help reduce peribronchial airway inflammation. No signs of chest wall cellulitis, shingles, injury. With reasonable clinical confidence, I think the patient is safe for outpatient follow up. Discussed return precautions. Questions answered. Patient voices comfort with the plan. Lab Data Labs: Lab Results 03/04/24 Range/Units 13:25 WBC 5.29 (4.50-11.00) K/uL RBC 4.40 (4.00-5.20) m/uL Hgb 12.2 (12.0-16.0) gm/dL Hct 37.5 (33.0-51.0) % MCV 85 (80-100) fL MCH 28 (26-34) pg MCHC 33 (32-36) gm/dL RDW Coeff of Deshaun 14.4 (11.5-15.5) % Plt Count 156 (140-440) K/uL Neut % (Auto) 50.4 (42.0-72.0) % Lymph % (Auto) 34.2 (20-44) % [place] % (Auto) 10.6 (0.0-11.0) % Eos % (Auto) 3.6 (0.0-7.0) % Baso % (Auto) 0.6 (0.0-3.0) % Neut # (Auto) 2.67 (1.7-7.0) K/uL Lymph # (Auto) 1.81 (0.90-2.90) K/uL [place] # (Auto) 0.60 (0.00-0.90) K/UL Eos # (Auto) 0.19 (0.00-0.50) K/uL Baso # (Auto) 0.03 (0.00-0.30) K/uL Abs Immat Gran (auto) 0.03 (0.00-0.30) K/uL Imm/Tot Granulo (auto) 0.6 % INR 0.92 (0.91-1.10) APTT 25 (23-33) Seconds D-Dimer Quant (PE/DVT) 0.87 H (0.00-0.50) ug/ml Sodium 140 (135-149) mmol/L Potassium 4.0 (3.6-5.1) mmol/L Chloride 109 (96-114) mmol/L Carbon Dioxide 20 (20-32) mmol/L Anion Gap 11 (7-15) mEq/L BUN 22 (7-30) mg/dL Creatinine 1.0 (0.5-1.5) mg/dL Estimated Creat Clear 49.00 Estimated GFR 61 ml/min Glucose 133 H (60-115) mg/dL Calcium 9.4 (8.4-10.6) mg/dL Total Creatine Kinase 168 H (41-117) U/L Troponin I < 0.01 L (0.01-0.04) ng/mL NT-Pro-B Natriuret Pep 432 pg/mL POC Creatinine 1.2 (0.6-1.3) mg/dl Imaging Data CT scan - chest: Attestation: I have reviewed the pertinent imaging results. Radiologist's impression: Impression: 1. No acute pulmonary embolism. 2. Mild bronchial wall thickening may represent airways infection or inflammation. ECG Data Attestation: I personally reviewed and interpreted this ECG as follows: Interpretation: Normal sinus rhythm rate 61 MN 206. First-degree AV block QRS axis normal axis. Q-waves in lead V1 and V2 ST segment/T wave: No ST segment elevation or depression QTc: 420 Discharge Plan Discharge Clinical Impression: Chest pain Patient Disposition: Home, Self-Care Condition: Stable Instructions: Chest Pain (DC) Additional Instructions: As we discussed, return to the ER right away if you have any worsening symptoms, especially if you have worsening chest pain, trouble breathing, lightheadedness, palpitations, or any concerns Take the prednisone once per day this may help reduce inflammation around the air passages in your lungs. If you are not completely improved within 48 hours, return to the ER or see your primary care provider for a recheck. Prescriptions: New prednisone 20 mg tablet 40 mg PO DAILY Qty: 10 0RF No Action atorvastatin 20 mg tablet Patient Comments: TAKE ONE TABLET BY MOUTH EVERY DAY (DME) blood-glucose meter [Accu-Chek Guide Glucose Meter] [facility] MISCELLANEOUS Patient Comments: USE TO TEST THREE TIMES A DAY metoprolol succinate 50 mg tablet extended release 24 hr PO Patient Comments: TAKE ONE TABLET BY MOUTH EVERY DAY . lisinopril 20 mg tablet Patient Comments: TAKE ONE TABLET BY MOUTH EVERY DAY . (DME) Accu-Chek Guide test strips Strip MISCELLANEOUS Patient Comments: USE TO TEST THREE TIMES A DAY isosorbide mononitrate 60 mg tablet extended release 24 hr PO Patient Comments: TAKE ONE TABLET BY MOUTH EVERY DAY (DME) lancets [Accu-Chek Softclix Lancets] [facility] MISCELLANEOUS Patient Comments: USE 1 EACH TO TEST THREE TIMES A DAY bupropion HCl 150 mg tablet extended release 24 hr PO Patient Comments: TAKE 3 TABLETS BY MOUTH DAILY (DME) Accu-Chek Guide L1-L2 Ctrl Yadira Solution MISCELLANEOUS Patient Comments: USE TO TEST NEEDED insulin glargine [Lantus Solostar U-100 Insulin] 100 unit/mL (3 mL) insulin pen SUBCUT Patient Comments: INJECT 19 UNITS SUBCUTANEOUSLY EVERY EVENING pioglitazone 45 mg tablet 45 mg PO DAILY omeprazole 20 mg capsule,delayed release(DR/EC) 20 mg PO DAILY Follow Up/Referrals: Provider,Not a Local [Referring] - Stand Alone Forms: [facility] Info Instructions
[2024-01-09] MEDS: NITROGLYCERIN 0.4 MG TAB.SUBL SUBLINGUAL (13:38)
[2024-01-09 13:39] LABS: Basophils Absolute Auto 0.03 K/uL (0.00-0.30); Basophils Percent Auto 0.6 % (0.0-3.0); Eosinophils Absolute Auto 0.19 K/uL (0.00-0.50); Eosinophils Percent Auto 3.6 % (0.0-7.0); Hematocrit 37.5 % (33.0-51.0); Hemoglobin* 12.2 gm/dL (12.0-16.0); Immature Granulocytes Abs Auto 0.03 K/uL (0.00-0.30); Immature Granulocytes Pct Auto 0.6 %; Lymphocytes Absolute Auto 1.81 K/uL (0.90-2.90); Lymphocytes Percent Auto 34.2 % (20-44); Mean Corpuscular HGB Conc 33 gm/dL (32-36); Mean Corpuscular Hemoglobin 28 pg (26-34); Mean Corpuscular Volume 85 fL (80-100); Monocytes Percent Auto 10.6 % (0.0-11.0); Neutrophils Absolute Auto 2.67 K/uL (1.7-7.0); Neutrophils Percent Auto 50.4 % (42.0-72.0); Platelet Count* 156 K/uL (140-440); RDW Coefficient of Variation % 14.4 % (11.5-15.5); White Blood Count* 5.29 K/uL (4.50-11.00)
[2024-01-09] MEDS: ASPIRIN 81 MG TAB.CHEW 162 MG PO (13:39)
[2024-01-09 13:47] LABS: Slide Review Reflex No
[2024-01-09 13:52] LABS: Creatinine, Point-of-Care* 1.2 mg/dl (0.6-1.3)
[2024-01-09 14:00] LABS: Chloride* 109 mmol/L (96-114); Sodium* 140 mmol/L (135-149)
[2024-01-09 14:03] LABS: Anion Gap 11 mEq/L (7-15); Carbon Dioxide* 20 mmol/L (20-32); Estimated Glomerular Filt Rate 61 ml/min; INR 0.92 (0.91-1.10); Prothrombin Time 12.9 Seconds
[2024-01-09 14:04] LABS: Blood Urea Nitrogen* 22 mg/dL (7-30); Calcium* 9.4 mg/dL (8.4-10.6); Glucose* 133 mg/dL (60-115); Partial Thromboplastin Time* 25 Seconds (23-33)
[2024-01-09 14:05] LABS: Creatine Kinase* 168 U/L (41-117)
[2024-01-09 14:06] LABS: D Dimer Quantitative* 0.87 ug/ml (0.00-0.50)
[2024-01-09 14:14] LABS: NT Pro B Type NatriureticPept* 432 pg/mL
[2024-01-09 14:16] LABS: Troponin I* < 0.01 ng/mL (0.01-0.04)
--- NOTE | 2024-01-09 14:22 | CT_ITS ---
Final Report Patient: RUBI CUBA Facility:?[facility] Patient ID:?[id number] Site Patient ID:?[id number]. Site :?[id number] Study:?CT Chest PE 95CC ISOVUE 370-01/09/2024 3:01:25 PM Ordering Physician:DB Final Report: Indication: DYSPNEA, CP, ABNORMAL d-DIMER Technique: CT angiogram of the chest was performed for evaluation of pulmonary embolism. 95 mL of Isovue 370 intravenous contrast was administered. Comparison: None. Findings: CARDIOVASCULAR: Diagnostic quality: Contrast opacification of the pulmonary arterial circulation is adequate for assessment of pulmonary embolism. Study is not significantly limited by respiratory motion artifact. Pulmonary arteries: No filling defects to suggest pulmonary embolism. Not enlarged. Heart: No interventricular septal deviation. Normal in size. Mild coronary artery calcification. No significant valvular calcification. Pericardium: No pericardial effusion. Thoracic aorta: No significant abnormality. Normal cervical branching. REMAINING CHEST: Medical devices: None. Thyroid: Heterogeneous and enlarged thyroid. Consider correlation with physical examination and clinical picture to determine need for further evaluation. Lymph nodes: No supraclavicular, axillary, mediastinal, or hilar lymphadenopathy. Other mediastinal structures: Small hiatal hernia. Lung parenchyma: 5 millimeter right minor fissure perifissural nodule (7/69). Consensus guidelines for incidentally detected perifissural nodules with typical imaging appearance: No routine follow up. (Edmundo, et al. Radiology 2017) Airways: Mild bronchial wall thickening. Pleura: No significant abnormality. Chest wall: No significant abnormality. Upper abdomen: No significant abnormality. Musculoskeletal: Degenerative changes of the left shoulder. Mild multilevel degenerative changes of the visualized spine. Impression: 1. No acute pulmonary embolism. 2. Mild bronchial wall thickening may represent airways infection or inflammation. Please note that all CT scans at this facility use dose modulation, iterative reconstruction, and/or weight-based dosing when appropriate to reduce radiation dose to as low as reasonably achievable. Dictated by Casey Oliveira MD @ 01/09/2024 3:49:50 PM (Electronic Signature)
== END 2024-01-09 16:33 | disposition home or self-care (01) ==
PROVIDERS: Emergency Provider Emergency Medicine; PCP Physician Assistant
DX: R07.9 Chest pain, unspecified (principal)
CPT/HCPCS: 36415; 71275; 80048; 82550; 82565; 83880; 84484; 85025; 85379; 85610; 85730; 93005; 99284; 99285; A9270; Q9967